=== PATIENT | male | born 1965 | race Caucasian/White ===

== ENCOUNTER 2023-06-28 05:57 | Day surgery (SDC) | payer BC ==
[2023-06-28] MEDS ORDERED: Lactated Ringers 1,000 ML IV SCH (06:30)
[2023-06-28 06:31] VITALS: RESP 18
[2023-06-28] MEDS ORDERED: Xylocaine-Mpf 2% 5 Ml Vial ONE (07:57)
[2023-06-28] MEDS ORDERED: DIPRIVAN 200 MG/20 ML IV ONE ×2 (07:57→08:08)
[2023-06-28] MEDS ORDERED: ROBINUL ONE (07:57)
[2023-06-28] MEDS ORDERED: ATROPINE SULFATE 1MG ONE (08:00)
[2023-06-28 09:00] VITALS: TEMP 96.6
[2023-06-28 09:06] VITALS: O2SAT 96
[2023-06-28 09:11] VITALS: BP 122/88; PULSE 66
--- NOTE | 2023-06-28 11:04 | OP ---
SURGERY DATE/TIME: 06/28/2023 0755 PREOPERATIVE DIAGNOSIS: Screening exam. POSTOPERATIVE DIAGNOSIS: Normal colon. PROCEDURE: Colonoscopy. SURGEON: Dr. Bautista. ANESTHESIA: Medications given by anesthesia department. HISTORY: The patient is a 58-year-old white male patient presenting now for screening colonoscopy. The patient was appraised of the risks of the procedure including the risk of perforation, phlebitis, untoward reaction to medication, bleeding and missed lesions. The patient verbalized his understanding and desired to have the procedure performed. DESCRIPTION OF PROCEDURE: The patient was given the medications by the anesthesia department. He had continuous pulse oximetry, ECG monitoring and intermittent blood pressure monitoring during the examination. He was placed in the left lateral decubitus position. A digital rectal examination was performed and revealed normal anal sphincter tone, no masses and a normal prostate. The flexible Olympus pediatric colonoscope was used to intubate the rectum. A view of the colon was developed sequentially to the cecum. Upon insertion and withdrawal, including a retroflex view in the rectum, no mucosal lesions were encountered. The scope was removed from the patient who tolerated the procedure well and was sent back to OP recovery in good condition. The prep was noted to be fair to good.
== END 2023-06-28 09:15 | disposition home or self-care (01) ==
LOC: SDC 05:57
PROVIDERS: ATTEND Family Medicine
DX: Z12.11 Encounter for screening for malignant neoplasm of colon (principal)
CPT/HCPCS: J0461; J2704

== ENCOUNTER 2024-11-13 06:05 | Day surgery (SDC) | payer BC ==
[2024-11-13] MEDS: Decadron 4 MG PO ONE (06:13)
[2024-11-13] MEDS: CEFAZOLIN 2 GM/100 ML NaCl 2 GM/100 ML IVPB IV SCH ×2 (06:13→14:28)
[2024-11-13] MEDS: NEURONTIN PO ONE (06:14)
[2024-11-13] MEDS: TYLENOL EXTRA STRENGTH 500 MG PO ONE (06:14)
[2024-11-13] MEDS: celeBREX 100 MG PO ONE (06:14)
[2024-11-13] MEDS: Lactated Ringers 1,000 ML IV SCH (06:15)
[2024-11-13] MEDS ORDERED: VANCOCIN INJECTION IV ONE (06:34)
[2024-11-13] MEDS ORDERED: Lactated Ringers 1,000 ML IV ONE (06:34)
[2024-11-13] MEDS ORDERED: Marcaine Mpf 0.5% Vial 30 Ml ONE (07:35)
[2024-11-13] MEDS ORDERED: EXPAREL 133 MG/10 ML VIAL IJ ONE (07:35)
[2024-11-13] MEDS ORDERED: BRIDION 200MG/2ML IV ONE (07:37)
[2024-11-13] MEDS ORDERED: SUBLIMAZE 100 MCG/2 ML ONE ×2 (07:37→10:11)
[2024-11-13] MEDS ORDERED: ROCURONIUM BROMIDE IV ONE (07:37)
[2024-11-13] MEDS ORDERED: TORAdol 30 mg Injection ONE (07:37)
[2024-11-13] MEDS ORDERED: Xylocaine-Mpf 2% 5 Ml Vial ONE (07:37)
[2024-11-13] MEDS ORDERED: Zofran 4 MG/2 ML VIAL ONE (07:37)
[2024-11-13] MEDS ORDERED: Versed 2 MG/2 ML Injection ONE (07:46)
[2024-11-13] MEDS ORDERED: Ephedrine Sulfate 50 MG/ML ONE (08:16)
[2024-11-13] MEDS ORDERED: PHENYLEPHRINE HCL ONE (08:40)
--- NOTE | 2024-11-13 11:29 | XRAY ---
Indication: Follow-up surgery. Comparison: June 29, 2024 Portable AP/crosstable lateral left knee again demonstrates osteopenia with interval total knee arthroplasty and intact prosthesis. Postsurgical soft tissue swelling, soft tissue emphysema, and effusion. No other abnormalities.
[2024-11-13] MEDS ORDERED: Zofran 4 MG/2 ML VIAL IV PRN (12:59)
[2024-11-13] MEDS ORDERED: Hydromorphone 1 mg/ml Injection IV PRN (12:59)
[2024-11-13] MEDS ORDERED: TYLENOL 325 MG PO PRN (12:59)
[2024-11-13] MEDS: NORCO 7.5/325 MG TAB PO PRN (13:14)
[2024-11-13] MEDS ORDERED: MEDICATION INTERVENTION MC SCH (13:30)
[2024-11-13] MEDS: Adalat CC 30 MG TABLET PO SCH ×2 (14:59→21:55)
[2024-11-13] MEDS: Zestril 20 MG PO SCH ×2 (14:59→21:55)
[2024-11-13 20:13] VITALS: RESP 18
[2024-11-13] MEDS: COREG 12.5 MG PO SCH (20:38)
[2024-11-13] MEDS: ZOCOR 20MG PO SCH (21:55)
[2024-11-13] MEDS ORDERED: NON-FORMULARY ITEM (Carvedilol [Carvedilol] 25 MG Tablet) PO SCH (22:00)
[2024-11-14 04:19] VITALS: O2SAT 93
[2024-11-14 04:56] LABS: Hematocrit 35.3 % (40.1-51.0); Hemoglobin 11.7 g/dL (13.7-17.5); Mean Cell Volume 87.6 fL (79.0-92.2); Mean Corpuscular Hgb Concent. 33.1 g/dL (32.3-36.5); Platelet Count 314 x10^3/uL (163-337); Red Blood Count 4.03 x10^6/uL (4.63-6.08); Red Cell Distribution Width 12.9 % (11.6-14.4); White Blood Count 21.9 x10^3/uL (4.23-9.07)
[2024-11-14 06:59] VITALS: BP 142/79; PULSE 68; TEMP 98
[2024-11-14] MEDS: Sodium Chloride 0.9% 1000 ML 1,000 ML IV SCH (08:17)
[2024-11-14] MEDS: Ecotrin 325 MG PO SCH (08:25)
[2024-11-14] MEDS: VITA-BEE WITH C PO SCH (08:26)
[2024-11-14] MEDS: CLARITIN 10 MG PO SCH (08:26)
[2024-11-14] MEDS ORDERED: NIFEDIPINE 90 MG PO SCH (10:00)
[2024-11-14] MEDS ORDERED: ECOTRIN 81 MG PO SCH (10:00)
[2024-11-14] MEDS ORDERED: NON-FORMULARY ITEM (Vitamin B Complex [Vitamin B Complex] 1 EACH Tablet) PO SCH (10:00)
[2024-11-14] MEDS ORDERED: LORATADINE 10 MG PO SCH (10:00)
[2024-11-14] MEDS ORDERED: GLUCOSAMINE SULFATE DIPOT CHLR 1000 MG PO SCH (10:00)
[2024-11-14] MEDS ORDERED: NON-FORMULARY ITEM (Atorvastatin Calcium [Atorvastatin Calcium] 20 MG Tablet) PO SCH (10:00)
--- NOTE | 2024-11-14 11:19 | OP ---
SURGERY DATE/TIME: 11/13/2024 [id number] PREOPERATIVE DIAGNOSIS: Severe advanced osteoarthritis, left knee. POSTOPERATIVE DIAGNOSIS: Severe advanced osteoarthritis, left knee. PROCEDURE: Left total knee replacement arthroplasty utilizing [employer] instrumentation with a size 11 femoral component press fit, a size G tibial component cemented, a 12 mm polyethylene tibial bearing tray, and a 25 mm single peg all-poly inset patella also cemented. SURGEON: Ernesto Kaye II, DO ANESTHESIA: General with a block. DESCRIPTION OF PROCEDURE AND FINDINGS: The patient was identified. Informed consent was obtained. The patient was taken to the operative suite where the block was administered then the general anesthetic was administered. Once an appropriate level of anesthesia had been obtained, tourniquet was placed high on the left thigh. The left lower extremity was then prepped and draped in the usual sterile fashion. A standard time-out was taken. Following this, the leg was exsanguinated and the tourniquet was elevated to 350 mmHg. With the knee in a slightly flexed position, an incision was carried out anteriorly. Skin and subcutaneous tissue incised. Dissection was carried out through the subcutaneous tissue and a standard medial parapatellar incision was then accomplished. Upon entering the joint, grade 1 synovial fluid was encountered. Hard eburnated bone was noted about the weightbearing surfaces of the tibial plateau as well as the femoral condyle. The patient also had significant degenerative changes of the patella. At this point, our attention was then turned to removing the portions of the infrapatellar fat pad, medial and lateral menisci, as well as the anterior cruciate ligament. Following this, the distal femoral guide was placed after creating a commercial airline pilot hole with the drill and placing the 10-inch intramedullary amos at 6 degrees of valgus. At this point, distal femoral cut was then accomplished. The knee was then flexed and any further pieces of meniscus which could be visualized were excised. The guide determined that a size 11 was the appropriate size. At this point, the drill holes were accomplished. The anterior, posterior and chamfer cuts were then made. At this point, our attention was now turned to the tibial side after removing any remaining osteophytes from the femur. Manager Lvn hole was created in the tibia and the 10-inch intramedullary amos was then inserted. About 4 mm of tibia was removed from the deficient side as the patient had an extremely tight knee. The cutting block was then held in place with this pin and the proximal wafer of tibia was removed. At this point, any remaining portions of menisci were then excised. The trial tibial component was applied and it was deemed that the G was the appropriate size. It was held in position with its pins after the alignment had been determined with the drop amos. Femoral trial was then impacted into position and the peg holes were then drilled for the permanent component. Trial reduction showed that a size 12 polyethylene tray gave excellent soft tissue balance in all planes of motion. Attention was then turned to the patella where the patellar button was then milled. Did have some mild lateral tracking and a limited lateral release was then performed. At this point, the patella tracked very nicely. Trial instrumentation was removed. The joint was copiously irrigated with the pulse dice table operator and dried. The cement was vacuum mixed and pressed into the interstices of the tibial plateau. The tibial component was then impacted into position. Excess cement was removed during the curing process. The femoral component was also impacted into position and the trial tibial tray was then inserted. The knee was held in extension during the curing process. Again any excess cement was removed during this process. Patellar button was then cemented into position and again excess cement was removed. Once the cement had fully cured, the knee was then placed through a range of motion and noted to have excellent tracking of the patella and excellent soft tissue balance in all planes of motion in the joint. At this point, the trial instrumentation was removed, the joint was copiously irrigated, and the 12 mm polyethylene tray was then inserted and locked into position. The wound was then irrigated and closed with 3-0 Stratafix subcuticular augmented with Dermabond. An Aquacel dressing was then applied. The patient was then transferred to the bed and taken to the recovery room in satisfactory condition having tolerated the procedure well.
== END 2024-11-14 09:45 | disposition home or self-care (01) ==
LOC: SDC 06:05 → MED SURG 11:30 → SDC 11-14 09:45
PROVIDERS: ATTEND Orthopaedic Surgery
DX: M17.12 Unilateral primary osteoarthritis, left knee (principal); M25.562 Pain in left knee
CPT/HCPCS: 27447; 36415; 73560; 85027; C1713; C1889; J0690; J1885; J2250; J2371; J2405; J2704; J3010; J3370; A9270-GY